=== PATIENT | male | born 1980 | race Caucasian/White ===

== ENCOUNTER 2016-10-23 23:42 | Emergency (ER) | payer SELFPAY ==
[2016-10-24] MEDS ORDERED: Ibuprofen 800 MG Tab PO ONE (00:09)
--- NOTE | 2016-10-24 00:09 | EDM.PDOC ---
ED HPI GENERAL MEDICAL PROBLEM - General Chief Complaint: Upper Extremity Injury/Pain Stated Complaint: PT HURT LT MIDDLE FINGER Time Seen by Provider: 10/24/16 00:01 Source of Information: Reports: Patient History Limitations: Reports: No Limitations - History of Present Illness INITIAL COMMENTS - FREE TEXT/NARRATIVE: HISTORY AND PHYSICAL: History of present illness: [36-year-old male status post left long finger injury complaining of pain. Patient pinched his finger at about 5 PM. It's been sore with mild swelling since that time. Since the injury patient has evolved an area of blood under the fingernail. He is able to use her finger normally without difficulty however it hurts when he touches the fingertip. No laceration no hand or wrist pain no other complaints Review of systems: As per history of present illness and below otherwise all systems reviewed and negative. Past medical history: As per history of present illness and as reviewed below otherwise noncontributory. Surgical history: As per history of present illness and as reviewed below otherwise noncontributory. Social history: No reported history of drug or alcohol abuse. Family history: As per history of present illness and as reviewed below otherwise noncontributory. Physical exam: HEENT: Normocephalic, atraumatic, pupils normal and symmetrical, supple neck, no meningismus, normal color Lungs: Normal and symmetrical chest wall excursion bilateral with no tachypnea or increased work of breathing, grossly normal chest exam Heart: No tachycardia in triage Abdomen: Normal-appearing, nondistended, no visible mass or asymmetry Pelvis: Normal-appearing Genitourinary: Deferred Rectal exam: Deferred Extremities: Atraumatic, normal use and range of motion, no visible evidence of gross neurovascular compromise . Left finger with mild soft tissue swelling. Soft pulp space. Greater than 50% subungual hematoma proximal nail bed. No laceration. No bony tenderness. Normal painless range of motion of the entire finger and wrist. Neuro: Awake, alert, oriented. Normal and appropriate mental status. Cranial nerves grossly unremarkable. Motor function normal. Nonfocal neurologic exam. Diagnostics: [X-ray left long finger with no fracture or foreign body interpreted by me] Therapeutics: [Ibuprofen given Procedure: Trephination of greater than 50% left long finger subungual hematoma by LUIS Watt Patient sitting comfortably. Electrocautery used to burn a hole through nail in the middle distribution dorsally. Positive blood drainage with relief of symptoms. Patient tolerated well no complications Impression: [Subungual hematoma Contusion left long finger] Plan: [Findings consistent with contusion. X-ray negative. Trephination performed see procedure note. Anti-inflammatory medication given with relief. Patient aware to use ice elevate up with strenuous activity and follow-up PCP. No clinical evidence of ligamentous or bony injury] Definitive disposition and diagnosis as appropriate pending reevaluation and review of above. Left 3-Middle finger Pain Score (Numeric/FACES): 8 - Related Data Allergies Allergy/AdvReac Type Severity Reaction Status Date / Time No Known Allergies Allergy Verified 10/23/16 23:57 Home Meds: Home Meds . [No Known Home Meds] 10/23/16 [History] Past Medical History - Past Health History Medical/Surgical History: Denies Medical/Surgical History Social & Family History - Family History Family Medical History: Noncontributory - Tobacco Use Smoking Status *Q: Never Smoker - Recreational Drug Use Recreational Drug Use: No Review of Systems - Review of Systems Review Of Systems: See Below (History of present illness) ED EXAM, GENERAL - Physical Exam Exam: See Below (History of present illness) Course - Vital Signs Last Recorded V/S: Last Vital Signs Temp 37.2 C 10/23/16 23:54 Pulse 83 10/24/16 01:25 Resp 16 10/24/16 01:25 BP 111/58 L 10/24/16 01:25 Pulse Ox 94 L 10/24/16 01:25 - Orders/Labs/Meds Orders: Active Orders 24 hr Category Date Time Status Fingers Third Digit Lt F2 [CR] Stat Exams 10/24/16 00:09 Taken Meds: Medications Discontinued Medications Generic Name Dose Route Start Last Admin Trade Name Freq PRN Reason Stop Dose Admin Acetaminophen 650 mg 10/24/16 01:13 10/24/16 01:30 Tylenol PO 10/24/16 01:14 650 mg NOW ONE Administration Ibuprofen 800 mg 10/24/16 00:09 10/24/16 00:20 Motrin PO 10/24/16 00:10 800 mg ONETIME ONE Administration Departure - Departure Time of Disposition: 01:13 Disposition: Home, Self-Care 01 Condition: good Clinical Impression: Contusion of finger of left hand, Subungual hematoma of finger of left hand - Discharge Information Instructions: Subungual Hematoma, Hand Contusion, [id number] Referrals: PCP,None [Primary Care Provider] - Forms: ED Department Discharge Additional Instructions: You have bruised her finger and it has caused swelling which is uncomfortable. The injury to your fingertip has also cause bleeding underneath her fingernail. This is called a subungual hematoma. We have drained this by making a hole in your nail. Apply a Band-Aid and be aware that it is likely this will continue to drain. Rest ice elevate and take Motrin and Tylenol as needed for discomfort. Avoid strenuous use of the fingertip until it is feeling better. - My Orders Last 24 Hours: My Active Orders 10/24/16 00:09 Fingers Third Digit Lt F2 [CR] Stat - Assessment/Plan Last 24 Hours: My Active Orders 10/24/16 00:09 Fingers Third Digit Lt F2 [CR] Stat
[2016-10-24] MEDS ORDERED: Acetaminophen 325 MG Tab PO ONE (01:13)
[2016-10-24 01:28] VITALS: BP 111/58
--- NOTE | 2016-10-24 11:13 | CR ---
EXAM DATE: 10/23/16 PATIENT'S AGE: 36 Patient: ALISTAIR WALL Facility: [place], [place] Site . Site : 1980 Study: XRay Extremity Left 3RD FINGER [id number]/[id number] 12:23:36 AM Ordering Physician: Coy Rouse Final Report: INDICATION: Nail bed hematoma 3rd digit left hand TECHNIQUE: Three views 3rd digit left hand COMPARISON: None FINDINGS: Bones: Alignment is normal. No fractures or bone lesions. Joint spaces: Unremarkable. Soft tissues: Unremarkable. IMPRESSION: Negative. Dictated by Wagner Morales MD @ 10/24/2016 12:31:19 AM Dictated by: Wagner Morales MD @ 10/24/2016 00:31:37 (Electronic Signature) Report Signed by Proxy. [facility]
== END 2016-10-24 01:25 | disposition home or self-care (01) ==
LOC: MW.ED 23:42
DX: S60.132A Contusion of left middle finger with damage to nail, initial encounter (principal); W23.0XXA Caught, crushed, jammed, or pinched between moving objects, initial encounter
CPT/HCPCS: 11740; 73140; 99283; A9270; 99282